=== PATIENT | male | born 1950 | race Caucasian/White ===

== ENCOUNTER → 2024-09-17 08:24 | Outpatient (REF) | payer MEDICARE, OTHER, SELFPAY | LOC: RST 08:24 | PROVIDERS: FAMILY PHYSICIAN Student in an Organized Health Care Education/Training Program | DX: R13.10 Dysphagia, unspecified (principal) | CPT/HCPCS: 74230; 92611 ==

== ENCOUNTER 2025-03-16 10:12 | Emergency (ER) | payer MEDICARE, OTHER, SELFPAY ==
[2025-03-16 10:29] VITALS: BP 143/90
[2025-03-16 11:11] LABS: % Basophils 0.5 % (0-2); % Eosinophils 1.4 % (0-6); % Immature Granulocytes 0.2 % (0-0.5); % Lymphocytes 18.2 % (20.5-51.1); % Monocytes 7.5 % (1.7-9.3); % Neutrophils 72.2 % (42.2-75.2); Absolute Eosinophils 0.1 10^3/uL (0-0.7); Absolute Lymphocytes 1.2 10^3/uL (1.2-3.4); Absolute Monocytes 0.5 10^3/uL (0.1-0.6); Absolute Neutrophils 4.7 10^3/uL (1.4-6.5); Hematocrit 40.9 % (39.0-52.0); Hemoglobin 13.8 g/dL (13.0-18.0); Mean Corp Hgb Conc. 33.7 g/dL (33.0-37.0); Mean Corpuscular Hgb 30.5 pg (27.0-31.0); Mean Corpuscular Volume 90.5 fL (80.0-94.0); Mean Platelet Volume 9.4 fL (7.4-10.4); Nucleated Red Blood Cells % 0 % (-); Platelet Count 238 10^3/uL (130-400); Red Blood Cell Count 4.52 10^6/uL (4.70-6.10); Red Cell Dist. Width 12.6 % (11.5-14.5); White Blood Cell Count 6.4 10^3/uL (4.8-10.8)
[2025-03-16 11:28] LABS: ALT (SGPT) < 10 U/L (0-50); AST (SGOT) 18 U/L (17-59); Albumin 4.1 g/dl (3.5-5.0); Alkaline Phosphatase 69 U/L (38-126); Blood Urea Nitrogen 15 mg/dl (9-20); Calcium 9.1 mg/dl (8.4-10.2); Carbon Dioxide 25 mmol/L (22-30); Chloride 103 mmol/L (98-107); Glucose 97 mg/dl (70-99); Potassium 4.6 mmol/L (3.5-5.1); Sodium 134 mmol/L (135-145); Total Bilirubin 0.7 mg/dl (0.2-1.3); Total Protein 6.2 g/dl (6.3-8.2); eGFR > 60.00
[2025-03-16 11:32] VITALS: BP 159/85
[2025-03-16 11:33] VITALS: BMI 20.8
[2025-03-16 11:40] LABS: Troponin I < 0.012 ng/ml
[2025-03-16 12:00] VITALS: BP 148/83
--- NOTE | 2025-03-16 12:00 | ED.GENMED ---
History of Present Illness
General
Chief Complaint: Chest Pain
Source: patient
Exam Limitations: none
Time Seen by Provider: 03/16/25 11:17
Nursing documentation reviewed up to this point in time: agreed with
History of Present Illness
History of Present Illness:
74-year-old male with a past medical history of Parkinson's status post deep brain stimulator, GERD who presents to the emergency department with his for evaluation of chest pain. Patient reports symptoms have been intermittent since
yesterday. He reports that a trigger for his pain seems to be when he stands up�he says that he thinks it could be related to his posture, he feels compression/pain in the center of his chest that seems to go away when he sits/lays. He is
currently pain-free here in the emergency room while resting in bed. He denies any radiation of his pain. He denies any associated nausea, vomiting, diaphoresis or abdominal pain. He says he has some chronic dyspnea related to kyphosis but no new
dyspnea. No recent cough or fever. No swelling or pain in the legs. He says that although he thinks pain could be musculoskeletal, he was concerned that it could be cardiac chest pain and came to the emergency room to have this evaluated.
Review of Systems
Review of Systems
All Other Systems: ROS reviewed and negative except as documented in HPI and ROS
Constitutional: Denies fever
Respiratory: Denies cough or trouble breathing
Cardiac: Reports chest pain; Denies diaphoresis or palpitations
ABD/GI: Denies abdominal pain, nausea or vomiting
: Denies flank pain
Musculoskeletal: Denies edema
Neurological: Denies dizzy or headache
Phy Exam
Physical Exam
Physical Exam:
General: Awake, alert; no acute distress
Head: Normocephalic, atraumatic
Eyes: Conjunctiva normal, sclera anicteric
Throat: Airway intact, handling secretions
Neck: Trachea midline, no JVD
Lungs: Clear to auscultation bilaterally, no wheezing, rales, rhonchi
Heart: Regular rate and rhythm, no murmurs, gallops, or rubs appreciated; battery pack from the brain stimulator noted right chest wall; no reproducible sternal/chest wall tenderness
Abd: Soft, non distended, nontender
Skin: no rash in area of concern
Extremities: No edema in extremities, no calf tenderness, equal pulses in all extremities
Scores
Heart Failure Risk
Heart Failure Risk Score: Not Applicable
Heart Score for Chest Pain Patients
STEMI patient?: No
History: Slightly or Non-Suspicious
ECG: Normal
Age: >/= 65 years
Risk Factors: No Risk Factors
Troponin: </= Normal Limit
Heart Score for Chest Pain Patients: 2
Heart Score Risk: 2.5% MACE over next 6 weeks
Withdrawal Assessment of Alcohol
Withdrawal Assessment Completed?: Not applicable
Course
Orders/Labs/Results
Orders:
Orders
03/16/25 10:15
Electrocardiogram (*1) Urgent
Reason for Study: Chest Pain
EKG- Treatment ONCE
EKG- Treatment ONCE
03/16/25 10:50
Complete Blood Count/With Diff Urgent
Comprehensive Metabolic Panel Urgent
Troponin I Urgent
03/16/25 11:23
CR Chest - 2 Views Urgent
Comment:
Reason For Exam: cp
Abnormal Lab Results
03/16/25
10:50
RBC 4.52 L 10^6/uL
(4.70-6.10)
Lymphocytes % 18.2 L %
(20.5-51.1)
Sodium 134 L mmol/L
(135-145)
Creatinine 0.5 L mg/dL
(0.7-1.3)
Total Protein 6.2 L g/dl
(6.3-8.2)
03/16/25 10:50
03/16/25 10:50
Vital Signs
Initial and Last Documented VS:
Initial Vital Signs
Temp Pulse Resp BP Pulse Ox
36.4 C 76 16 143/90 97
03/16/25 10:29 03/16/25 10:29 03/16/25 10:29 03/16/25 10:29 03/16/25 10:29
Last Documented Vital Signs
Temp Pulse Resp BP Pulse Ox
36.4 C 76 19 148/83 97
03/16/25 10:29 03/16/25 12:00 03/16/25 12:00 03/16/25 12:00 03/16/25 12:06
MDM/Problems Addressed
Differential Diagnosis Includes:
Costochondritis, GERD, angina/ACS, pneumothorax; very low clinical suspicion for PE or acute aortic syndrome in my judgment no further workup for these diagnosis is indicated
MDM/Problems Addressed:
74-year-old male presents for evaluation of atypical chest pain that is positional intermittent since yesterday. Vitals and exam as above. His EKG in triage shows sinus rhythm with no acute ischemic changes. He had lab work sent in triage
including a CBC and a CMP which were unremarkable. He had troponin sent which was undetectable. Will check chest x-ray. Monitor on telemetry. Reassess after the above.
Chest x-ray negative for any acute abnormalities. Labs have been stable. No chest pain recurrence. Very low suspicion for anginal chest pain/ACS. The patient is stable for discharge at this point can follow-up with his primary care physician as
an outpatient. Patient feels comfortable this plan. All questions answered.
*Radiology
Radiology exam reviewed: preliminary read by ED provider
*Pulse Oximetry
SaO2: 97
Oxygen Mode of Delivery: Room air
Patient hypoxic: no (97%)
*EKG
Interpreted by ED Provider?: Yes
Heart Rate: 74
Rate: normal
Rhythm: sinus and PVC's
Interval: first degree heart block
QRS Pattern: normal QRS
Ischemia: no ischemia
*Critical Care Note
Total Time (30-74mins, 75-104mins- exclusive of procedures): Not Applicable
Data Reviewed
Source: patient and spouse
ED Attending Note
-
Portions of this chart may have been created with voice recognition software.� Occasional wrong word or��sound alike� substitutions may have occurred due to the inherent limitations of voice recognition software.
Discharge Plan
Departure
Patient Disposition: Home (Routine Discharge)
Date of Disposition: 03/16/25
Time of Disposition: 14:30
Patient with high blood pressure during this ER visit?: No
Discharge Problem:
Chest pain
Instructions: Chest Pain PCP Follow Up
Prescriptions:
No Action
celecoxib [Celebrex] 200 mg Capsule
200 mg PO QPM
polyethylene glycol 3350 [Miralax] 17 gram Powder In Packet
17 g PO DAILYPRN PRN (Reason: constipation)
carbidopa-levodopa 25-100 mg Tablet
1.5 tab PO QID
diclofenac sodium [Voltaren] 1 % Gel
0 g TOPICAL DAILYPRN PRN (Reason: right elbow )
melatonin 10 mg Tablet
10 mg PO HS
Neupro 3 mg/24 hour Patch 24 Hour
3 mg TRANSDERMAL QPM
Gocovri 137 mg Capsule,Extended Release 24hr
274 mg PO HS
cephalexin 500 mg capsule
500 mg PO Q6H 7 Days Qty: 28 0RF
Referrals:
Shabbir Alatorre MD [Family Provider, Family Practice] - Follow up in 5-7 days
Activity Restrictions/Additional Instructions:
Thank you for visiting the Emergency Department at [facility].
1. Please schedule a follow up appointment as directed. Call first thing tomorrow morning to make an appointment.
2. If indicated, please take your medications as instructed and indicated on discharge paperwork.
3. If any of your symptoms do not improve, or persist, or become more severe within 6-12 hours, please return to the emergency department for further care.
4. Please return to the emergency department if you develop a headache, neck pain/stiffness, fever greater than 100.4F, chest pain, shortness of breath, persistent nausea, vomiting, slurred speech, difficulty walking, numbness/tingling, weakness,
signs of infection or any other symptoms that are worrisome to you.
Please call [phone] if you have any questions.
Interventions
Interventions:
*Risk Screen - Suicide Last Done: 03/16/25 11:34
*General Assessment Last Done: 03/16/25 11:34
*Neglect/Abuse Screening Last Done: 03/16/25 11:34
*ED- Fall Risk Assessment Last Done: 03/16/25 11:34
*ED COVID-19 Vaccine History Last Done: 03/16/25 11:34
ED- Cardiac Assessment Last Done: 03/16/25 11:34
Discharge Date and Time
Print Language: [id number]
== END 2025-03-16 14:38 | disposition home or self-care (01) ==
LOC: EMR 10:12
PROVIDERS: Emergency Medicine; EMERGENCY PHYSICIAN Emergency Medicine; FAMILY PHYSICIAN Family Medicine
DX: R07.89 Other chest pain (principal); G20.A1 Parkinson's disease without dyskinesia, without mention of fluctuations
CPT/HCPCS: 99283; 71046; 80053; 84484; 85025; 93005